=== PATIENT | male | born 1985 | race Caucasian/White ===

== ENCOUNTER 2016-06-11 06:08 | Emergency (ER) | payer BC ==
--- NOTE | 2016-06-11 06:34 | Emergency Department Record ---
History of Present Illness - General Chief complaint: Extremity Problem Stated complaint: HAND INJURY Time Seen by Provider: 06/11/16 06:25 Source: Patient Mode of Arrival: Ambulatory Limitations: No limitations - History of Present Illness Initial comments: pt was lifting at work when he felt a pop in his wrist and has had pain ever since that is keeping him awake. Complaint: Extremity pain, Joint swelling Onset/Timin -: Days(s) Location: Left, Hand, Other History of Same: Yes (broke hand 2 years ago) Radiation: None Severity scale (1-10): 9 Quality: Aching Consistency: Constant Improves with: Nothing Worsens with: Exertion, Palpation, Weight bearing Associated Symptoms: Denies other symptoms - Related Data Previous Rx's Medication Instructions Recorded Ibuprofen [Motrin 600Mg] 600 mg PO Q6H #20 tablet 06/11/16 Allergies Allergy/AdvReac Type Severity Reaction Status Date / Time No Known Drug Allergies Allergy Verified 06/11/16 06:10 Travel Screening - Travel/Exposure Within Last 30 Days Have you traveled within the last 30 days?: No - Travel/Exposure Within Last Year Have you traveled outside the [place] in the last year?: No - Additonal Travel Details Have you been exposed to anyone with a communicable illness?: No - Travel Symptoms Symptom Screening: None Review of Systems Reviewed: No additional complaints except as noted below Constitutional: Reports: As per HPI. Denies: Chills, Fever, Malaise, Night sweats, Weakness, Weight change Eyes: Reports: As per HPI. Denies: Eye discharge, Eye pain, Photophobia, Vision change ENT: Reports: As per HPI. Denies: Congestion, Dental pain, Ear pain, Epistaxis , Hearing loss, Throat pain Respiratory: Reports: As per HPI. Denies: Cough, Dyspnea, Hemoptysis, Stridor, Wheezes Cardiovascular: Reports: As per HPI. Denies: Arrhythmia, Chest pain, Dyspnea on exertion, Edema, Murmurs, Orthopnea, Palpitations, Paroxysmal nocturnal dyspnea, Rheumatic Fever, Syncope Endocrine: Reports: As per HPI. Denies: Fatigue, Heat or cold intolerance, Polydipsia, Polyuria Gastrointestinal: Reports: As per HPI. Denies: Abdominal pain, Constipation, Diarrhea, Hematemesis, Hematochezia, Melena, Nausea, Vomiting Genitourinary: Reports: As per HPI. Denies: Dysuria, Frequency, Hematuria, Incontinence, Retention, Testicular pain, Testicular mass, Urgency Musculoskeletal: Reports: As per HPI. Denies: Arthralgia, Back pain, Gout, Joint swelling, Myalgia, Neck pain Skin: Reports: As per HPI. Denies: Bruising, Change in color, Change in hair/ nails, Lesions, Pruritus, Rash Neurological: Reports: As per HPI. Denies: Abnormal gait, Confusion, Headache, Numbness, Paresthesias, Seizure, Tingling, Tremors, Vertigo, Weakness Psychiatric: Reports: As per HPI. Denies: Anxiety, Auditory hallucinations, Depression, Homicidal thoughts, Suicidal thoughts, Visual hallucinations Hematological/Lymphatic: Reports: As per HPI. Denies: Anemia, Blood Clots, Easy bleeding, Easy bruising, Swollen glands Past Medical History - SOCIAL HISTORY Smoking Status: Current every day smoker Alcohol Use: Occassional Alcohol Use Comment: weekends socially Drug Use: None - RESPIRATORY Hx Respiratory Disorders: No - CARDIOVASCULAR Hx Cardio Disorders: No - NEURO Hx Neuro Disorders: No - GI Hx GI Disorders: No - Hx Genitourinary Disorders: No - ENDOCRINE Hx Endocrine Disorders: No - MUSCULOSKELETAL Hx Musculoskeletal Disorders: No Comment:: fx L hand - PSYCH Hx Psych Problems: No - HEMATOLOGY/ONCOLOGY Hx Hematology/Oncology Disorders: No Family Medical History Any Significant Family History?: No Hx Diabetes: Father Hx Heart Disease: Father Hx HTN: Father Physical Exam - General General Appearance: Alert, Oriented x3, Cooperative, Mild distress - Head Head exam: Normal inspection - Eye Eye exam: Normal appearance, PERRL, EOMI Pupils: Normal accommodation - ENT ENT exam: Normal exam, Mucous membranes moist, Normal external ear exam, Normal orophraynx Ear exam: Normal external inspection. negative: External canal tenderness Nasal Exam: Normal inspection. negative: Discharge, Sinus tenderness Mouth exam: Normal external inspection, Tongue normal Teeth exam: Normal inspection. negative: Dental caries Throat exam: Normal inspection. negative: Tonsillar erythema, Tonsillar exudate - Neck Neck exam: Normal inspection, Full ROM. negative: Tenderness - Respiratory Respiratory exam: Normal lung sounds bilaterally. negative: Respiratory distress - Cardiovascular Cardiovascular Exam: Regular rate, Normal rhythm, Normal heart sounds - GI/Abdominal GI/Abdominal exam: Soft, Normal bowel sounds. negative: Tenderness - Rectal Rectal exam: Deferred - exam: Deferred - Extremities Extremities exam: Normal capillary refill, Tenderness, Other (no snuffbox tenderness). negative: Normal inspection, Full ROM Image of Hand: 1 - tender - Back Back exam: Reports: Normal inspection, Full ROM. Denies: Muscle spasm, Rash noted, Tenderness - Neurological Neurological exam: Alert, CN II-XII intact, Normal gait, Oriented X3 - Psychiatric Psychiatric exam: Normal affect, Normal mood - Skin Skin exam: Dry, Intact, Normal color, Warm Course Vital Signs 06/11/16 06:10 Temperature 97.9 F Pulse Rate 81 Respiratory 18 Rate Blood Pressure 140/86 Pulse Ox 99 Disposition Disposition: Discharge Clinical Impression: Sprain of left wrist Qualifiers: Encounter type: initial encounter Qualified Code(s): S63.502A - Unspecified sprain of left wrist, initial encounter Disposition: Home, Self-Care Condition: (1) Good Instructions: Wrist Sprain (ED) Additional Instructions: follow up with family doctor. return sooner if worse. ice and elevate. Prescriptions: Ibuprofen [Motrin 600Mg] 600 mg PO Q6H #20 tablet
[2016-06-11] MEDS ORDERED: HYDROCODONE/APAP 5/325MG TABLET PO ONE (06:52)
[2016-06-11] MEDS ORDERED: IBUPROFEN 600 MG TABLET PO ONE (06:52)
--- NOTE | 2016-06-14 14:39 | RADIOLOGY REPORT ---
EXAM: LEFT WRIST, THREE VIEWS HISTORY: PATIENT HAS INJURY TO THE LEFT WRIST. PATIENT HAS ACUTE PAIN. TECHNIQUE: Three views of the left wrist were provided along with the comparison study dated 09/29/13. FINDINGS: Contour deformity of the third and fourth metacarpals are identified consistent with healed fractures. There is no radiographic evidence of a new, acute fracture or dislocation of the left wrist. No significant soft tissue abnormalities are visualized. Carpal alignment is within normal limits. IMPRESSION: CHRONIC HEALED FRACTURES AT THE BASE OF THE SECOND, THIRD AND FOURTH METACARPALS. NO RADIOGRAPHIC EVIDENCE OF A NEW, ACUTE PROCESS INVOLVING THE LEFT WRIST. IF THERE IS FURTHER CLINICAL CONCERN THEN AN MRI OF THE LEFT WRIST CAN BE OBTAINED FOR FURTHER EVALUATION. JOB NUMBER: [id number] MTDD
== END 2016-06-11 07:07 | disposition home or self-care (01) ==
LOC: ER 06:08
DX: S63.502A Unspecified sprain of left wrist, initial encounter (principal); X50.9XXA Other and unspecified overexertion or strenuous movements or postures, initial encounter; Y92.9 Unspecified place or not applicable; Y99.0 Civilian activity done for income or pay
CPT/HCPCS: 99283